=== PATIENT | female | born 1990 | race Caucasian/White ===

== ENCOUNTER 2019-11-18 13:27 | Observation (INO) | payer MEDICAID ==
[~2019-11-18] VITALS: Ht 157.5 cm; Wt 68.0 kg
== END 2019-11-18 16:50 | disposition home or self-care (01) ==
LOC: MLD 13:27
PROVIDERS: ADMIT Obstetrics & Gynecology; ATTEND Obstetrics & Gynecology
DX: O42.913 Preterm premature rupture of membranes, unspecified as to length of time between rupture and onset of labor, third trimester (principal); Z3A.36 36 weeks gestation of pregnancy
CPT/HCPCS: 76805; 81000; G0378; Q0092

== ENCOUNTER 2019-12-07 10:38 | Inpatient (IN) | payer MEDICAID ==
[~2019-12-07] VITALS: Ht 157.5 cm; Wt 80.3 kg
[2019-12-07] MEDS ORDERED: LACTATED RINGERS 1,000 ML IV SCH (11:12)
[2019-12-07] MEDS ORDERED: CARBOPROST 250 MCG/ML AMP IM PRN (11:15)
[2019-12-07] MEDS ORDERED: METHYLERGONOVINE 0.2 MG/ML AMP IM PRN (11:15)
[2019-12-07] MEDS ORDERED: NALBUPHINE 10 MG/ML AMP IVP PRN (11:15)
[2019-12-07] MEDS ORDERED: PROMETHAZINE 25 MG/ML VIAL IVP PRN (11:15)
[2019-12-07 11:36] VITALS: BP 109/65
[2019-12-07] MEDS ORDERED: INFLUENZA VACCINE QUAD 0.5 ML SYR IMVAC PRN (11:40)
[2019-12-07] MEDS ORDERED: MISOPROSTOL 25 MCG TAB VG SCH (12:00)
[2019-12-07 12:17] LABS: BASOPHILS % (AUTO) 0.3 % (0.0-2.0); EOSINOPHILS % (AUTO) 0.3 % (0.0-4.0); HEMATOCRIT 33.2 % (36-48); HEMOGLOBIN 10.7 g/dL (12.0-16.0); LYMPHOCYTES # (AUTO) 1.5 K/uL (2.5-16.5); LYMPHOCYTES % (AUTO) 13.8 % (20.5-51.1); MEAN CORPUSCULAR HEMOGLOBIN 27 pg (27-31); MEAN CORPUSCULAR HGB CONC 32 g/dL (33-37); MEAN CORPUSCULAR VOLUME 84.5 fL (80-94); MONOCYTES # (AUTO) 0.6 K/uL (0.8-1.0); MONOCYTES % (AUTO) 5.9 % (1.7-9.3); NEUTROPHILS # (AUTO) 8.5 K/uL (1.8-7.7); NEUTROPHILS % (AUTO) 79.7 % (42.2-75.2); PLATELET COUNT (AUTO) 157 K/uL (140-450); RED BLOOD CELL COUNT(AUTO) 3.92 MIL/uL (4.20-5.40); RED CELL DISTRIBUTION WIDTH 15.2 % (11.6-13.7); WHITE BLOOD COUNT (AUTO) 10.6 K/uL (4.8-10.8)
[2019-12-07 12:56] LABS: APPEARANCE,URINE CLEAR (CLEAR); BILIRUBIN,URINE NEGATIVE (NEGATIVE); BLOOD, URINE NEGATIVE (NEGATIVE); COLOR,URINE YELLOW (YELLOW); LEUKOCYTE ESTERASE ,URINE TRACE (NEGATIVE); NITRITE, URINE NEGATIVE (NEGATIVE); UGLUCOSE NEGATIVE (NEGATIVE)
[2019-12-07 13:03] LABS: RBC,URINE 0-5 /HPF (0-5); WBC,URINE 0-5 /HPF (0-5)
[2019-12-07] MEDS ORDERED: OXYTOCIN 20 UNITS in LACTATED RINGERS 1,000 ML IV SCH (19:45)
[2019-12-08] MEDS ORDERED: OXYTOCIN 20 UNITS/LR PREMIX 1,000 ML IV ONE (00:37)
[2019-12-08] MEDS ORDERED: BENZOCAINE/MENTHOL 20%-0.5% 60 GM CAN TP PRN (01:00)
[2019-12-08] MEDS ORDERED: MEASLES, MUMPS, AND RUBELLA 1 VIAL SQVAC PRN (01:00)
[2019-12-08] MEDS ORDERED: METHYLERGONOVINE 0.2 MG/ML AMP IM PRN (01:00)
[2019-12-08] MEDS ORDERED: OXYTOCIN 10 UNITS/ML VIAL IM PRN (01:00)
[2019-12-08] MEDS ORDERED: IBUPROFEN 800 MG TAB PO PRN (01:00)
[2019-12-08] MEDS ORDERED: METHYLERGONOVINE 0.2 MG TAB PO PRN (01:00)
[2019-12-08] MEDS ORDERED: BISACODYL 5 MG TABEC PO PRN (01:00)
[2019-12-08] MEDS ORDERED: LIDOCAINE MPF 1% 10 MG/ML VIAL INJ ONE (01:35)
--- NOTE | 2019-12-08 08:34 | NUR ---
PATIENT HAS BEEN SCREENED AND CATEGORIZED LOW NUTRITION RISK. PATIENT WILL BE SEEN WITHIN 7 DAYS OF ADMISSION. 12/13/[address]
[2019-12-09 16:09] LABS: HEMATOCRIT 30.6 % (36-48); HEMOGLOBIN 9.6 g/dL (12.0-16.0)
== END 2019-12-09 17:15 | disposition home or self-care (01) | DRG 560 ==
LOC: MLD 10:38 → MFCC 12-08 03:52
PROVIDERS: ADMIT Obstetrics & Gynecology; ATTEND Obstetrics & Gynecology
PROC: 10E0XZZ Delivery of Products of Conception, External Approach (ICD-10-PCS; principal; 2019-12-07)
PROC: 0HQ9XZZ Repair Perineum Skin, External Approach (ICD-10-PCS; 2019-12-07)
PROC: 10907ZC Drainage of Amniotic Fluid, Therapeutic from Products of Conception, Via Natural or Artificial Opening (ICD-10-PCS; 2019-12-07)
PROC: 3E033VJ Introduction of Other Hormone into Peripheral Vein, Percutaneous Approach (ICD-10-PCS; 2019-12-07)
DX: O70.0 First degree perineal laceration during delivery (principal); Z37.0 Single live birth; Z3A.40 40 weeks gestation of pregnancy
CPT/HCPCS: 36415; 59200; 59409; 76815; 81001; 85018; 85025; 86592; 86886; 86900; 86901; J2210; J2590; J7120; Q0092

== ENCOUNTER 2020-11-14 03:47 | Emergency (ER) | payer MEDICAID ==
[~2020-11-14] VITALS: Ht 157.5 cm; Wt 49.9 kg
[2020-11-14 03:58] VITALS: BP 125/78
--- NOTE | 2020-11-14 04:09 | NUR ---
A1 30 Y/O FEMALE PRESENTED TO ED C/O VAGINAL DISCHARGE X 1 HR. PT IS APPROXIMATELY 12 WEEKS , LMP APPROX 2019. PT DENIES ABDOMINAL PAIN AND VAGINAL BLEEDING AT THIS TIME. PT DENIES DYSURIA. PT ABD NONTENDER UPON PALPATION. A/O X 4. RR EVEN AND UNLABORED. PT RESTING IN BED , LOCKED AND IN LOWEST POSITION, HOB ELEVATED, SIDE RAIL X1. VSS. PMH: DENIES NKA
--- NOTE | 2020-11-14 04:21 | NUR ---
PT PROVIDED W/ URINE CUP FOR ENCOURAGEMENT OF URINE SAMPLE.
--- NOTE | 2020-11-14 04:23 | NUR ---
PT PROVIDED W/ GOWN AND BLANKET AT THIS TIME.
--- NOTE | 2020-11-14 04:30 | NUR ---
PT AMBULATED TO RESTROOM W/ STEADY GAIT.
--- NOTE | 2020-11-14 04:58 | NUR ---
BLOOD LABS COLLECTED AND WALKED OVER TO LAB
[2020-11-14 05:08] LABS: BASOPHILS % (AUTO) 0.3 % (0.0-2.0); EOSINOPHILS # (AUTO) 0.1 K/uL (0-0.4); EOSINOPHILS % (AUTO) 1.6 % (0.0-4.0); HEMATOCRIT 34.5 % (36-48); HEMOGLOBIN 11.7 g/dL (12.0-16.0); LYMPHOCYTES # (AUTO) 1.5 K/uL (2.5-16.5); LYMPHOCYTES % (AUTO) 19.1 % (20.5-51.1); MEAN CORPUSCULAR HEMOGLOBIN 30 pg (27-31); MEAN CORPUSCULAR HGB CONC 34 g/dL (33-37); MEAN CORPUSCULAR VOLUME 88.5 fL (80-94); MONOCYTES # (AUTO) 0.4 K/uL (0.8-1.0); MONOCYTES % (AUTO) 5.1 % (1.7-9.3); NEUTROPHILS # (AUTO) 5.9 K/uL (1.8-7.7); NEUTROPHILS % (AUTO) 73.9 % (42.2-75.2); PLATELET COUNT (AUTO) 205 K/uL (140-450); RED BLOOD CELL COUNT(AUTO) 3.89 MIL/uL (4.20-5.40); RED CELL DISTRIBUTION WIDTH 13.4 % (11.6-13.7); WHITE BLOOD COUNT (AUTO) 7.9 K/uL (4.8-10.8)
[2020-11-14 05:11] LABS: APPEARANCE,URINE HAZY (CLEAR); BILIRUBIN,URINE NEGATIVE (NEGATIVE); BLOOD, URINE 1+ (NEGATIVE); COLOR,URINE DARK YELLOW (YELLOW); LEUKOCYTE ESTERASE ,URINE TRACE (NEGATIVE); NITRITE, URINE NEGATIVE (NEGATIVE); UGLUCOSE NEGATIVE (NEGATIVE)
--- NOTE | 2020-11-14 05:15 | NUR ---
URINE SPECIMEN COLLECTED AND WALKED OVER TO LAB
--- NOTE | 2020-11-14 05:20 | NUR ---
ULTRASOUND AT BEDSIDE
[2020-11-14 05:31] LABS: ALBUMIN 2.9 g/dL (3.4-5.0); ANION GAP 13.8 (8-16); CARBON DIOXIDE 23.7 mmol/L (21-32); CREATININE 0.6 mg/dL (0.6-1.3); POTASSIUM 3.5 mmol/L (3.5-5.1); TOTAL BILIRUBIN 0.4 mg/dL (0.0-1.0)
[2020-11-14] MEDS ORDERED: cephALEXin 500 MG CAP PO ONE (05:50)
[2020-11-14 06:52] VITALS: BP 125/78
== END 2020-11-14 06:52 | disposition home or self-care (01) ==
LOC: MED 03:47
DX: O23.41 Unspecified infection of urinary tract in pregnancy, first trimester (principal); O26.891 Other specified pregnancy related conditions, first trimester; N89.8 Other specified noninflammatory disorders of vagina; Z3A.12 12 weeks gestation of pregnancy
CPT/HCPCS: 36415; 76801; 80053; 81001; 81025; 84702; 85025; 86900; 86901; 87086; 99284

== ENCOUNTER 2022-01-02 07:26 | Emergency (ER) | payer OTHER, SELFPAY ==
[~2022-01-02] VITALS: Ht 158.8 cm; Wt 73.9 kg
[2022-01-02 07:38] VITALS: BP 116/67
--- NOTE | 2022-01-02 07:45 | NUR ---
PATIENT AMB TO BED 11
[2022-01-02] MEDS ORDERED: NAPR-1704 PO (08:20)
--- NOTE | 2022-01-02 08:43 | NUR ---
PT C/O LOWER BACK PAIN, VAGINAL BLEEDING SINCE THIS AM.
== END 2022-01-02 09:29 | disposition home or self-care (01) ==
LOC: MED 07:26
DX: N92.1 Excessive and frequent menstruation with irregular cycle (principal)
CPT/HCPCS: 81002; 81025; 99282

== ENCOUNTER 2022-08-09 08:27 | Observation (INO) | payer OTHER ==
[~2022-08-09] VITALS: Ht 165.1 cm; Wt 80.7 kg
[~2022-08-09 08:27] MED LIST: NAPR-1704 PO
[2022-08-09 08:30] VITALS: BP 119/56
== END 2022-08-09 13:30 | disposition home or self-care (01) ==
LOC: MLD 08:27
PROVIDERS: ADMIT Obstetrics & Gynecology; ATTEND Obstetrics & Gynecology
DX: O36.8120 Decreased fetal movements, second trimester, not applicable or unspecified (principal); Z3A.22 22 weeks gestation of pregnancy
CPT/HCPCS: 59025; 76819; 81000; G0378; G0379; Q0092

== ENCOUNTER 2022-11-04 06:02 | Observation (INO) | payer OTHER ==
[~2022-11-04] VITALS: Ht 165.1 cm; Wt 76.2 kg
[2022-11-04] MEDS ORDERED: TERBUTALINE 1 MG/ML VIAL SUBQ SCH (06:45)
[2022-11-04] MEDS ORDERED: LACTATED RINGERS 500 ML IV SCH (06:45)
[2022-11-04] MEDS ORDERED: BETAMETH ACET/BETAMETH NA PH 30 MG/5 ML VIAL IM SCH (06:45)
[2022-11-04] MEDS ORDERED: LACTATED RINGERS 1,000 ML IV SCH (06:45)
[2022-11-04 06:53] VITALS: BP 102/53
[2022-11-04 07:32] LABS: BASOPHILS % (AUTO) 0.2 % (0.0-2.0); EOSINOPHILS # (AUTO) 0.1 K/uL (0-0.4); EOSINOPHILS % (AUTO) 0.7 % (0.0-4.0); HEMATOCRIT 30.3 % (36-48); HEMOGLOBIN 9.8 g/dL (12.0-16.0); LYMPHOCYTES # (AUTO) 1.5 K/uL (2.5-16.5); LYMPHOCYTES % (AUTO) 13.1 % (20.5-51.1); MEAN CORPUSCULAR HEMOGLOBIN 28 pg (27-31); MEAN CORPUSCULAR HGB CONC 32 g/dL (33-37); MEAN CORPUSCULAR VOLUME 86.5 fL (80-94); MONOCYTES % (AUTO) 8.5 % (1.7-9.3); NEUTROPHILS # (AUTO) 8.9 K/uL (1.8-7.7); NEUTROPHILS % (AUTO) 77.5 % (42.2-75.2); PLATELET COUNT (AUTO) 156 K/uL (140-450); RED CELL DISTRIBUTION WIDTH 15.5 % (11.6-13.7); WHITE BLOOD COUNT (AUTO) 11.5 K/uL (4.8-10.8)
[2022-11-04 08:34] LABS: APPEARANCE,URINE CLEAR (CLEAR); BILIRUBIN,URINE NEGATIVE (NEGATIVE); BLOOD, URINE NEGATIVE (NEGATIVE); COLOR,URINE YELLOW (YELLOW); LEUKOCYTE ESTERASE ,URINE NEGATIVE (NEGATIVE); NITRITE, URINE NEGATIVE (NEGATIVE); PH,URINE 6.5 (5.0-9.0); UGLUCOSE NEGATIVE (NEGATIVE)
--- NOTE | 2022-11-04 10:10 | NUR ---
PATIENT HAS BEEN SCREENED AND CATEGORIZED LOW NUTRITION RISK. PATIENT WILL BE SEEN WITHIN 7 DAYS OF ADMISSION. 11/04/22-11/11/[address]
== END 2022-11-04 15:45 | disposition home or self-care (01) ==
LOC: MLD 06:02
PROVIDERS: ADMIT Obstetrics & Gynecology; ATTEND Obstetrics & Gynecology
DX: O60.03 Preterm labor without delivery, third trimester (principal); Z20.822 Contact with and (suspected) exposure to COVID-19; Z3A.34 34 weeks gestation of pregnancy
CPT/HCPCS: 36415; 59025; 76817; 81003; 82731; 85025; 87426; 87635; 96372; G0378; J0702; J3105; Q0092

== ENCOUNTER 2022-11-05 10:09 | Observation (INO) | payer OTHER ==
[~2022-11-05] VITALS: Ht 165.1 cm; Wt 85.3 kg
[2022-11-05] MEDS ORDERED: BETAMETH ACET/BETAMETH NA PH 30 MG/5 ML VIAL IM SCH (10:21)
[2022-11-05 10:51] VITALS: BP 111/58
== END 2022-11-05 11:32 | disposition home or self-care (01) ==
LOC: MLD 10:09
PROVIDERS: ADMIT Obstetrics & Gynecology; ATTEND Obstetrics & Gynecology
DX: O26.893 Other specified pregnancy related conditions, third trimester (principal); R10.9 Unspecified abdominal pain; O99.891 Other specified diseases and conditions complicating pregnancy; M54.9 Dorsalgia, unspecified; Z3A.35 35 weeks gestation of pregnancy
CPT/HCPCS: 59025; G0378; J0702

== ENCOUNTER 2023-11-10 14:59 | Emergency (ER) | payer OTHER ==
[~2023-11-10] VITALS: Ht 165.1 cm; Wt 70.9 kg
[2023-11-10 15:13] VITALS: BP 97/71; PULSE 111; RESP 20; TEMP 99.3; O2SAT 96
[2023-11-10] MEDS ORDERED: KETOROLAC 30 MG/ML VIAL IM ONE (15:55)
[2023-11-10] MEDS ORDERED: [UNRECOGNIZED DRUG - CODE] PO (15:56)
== END 2023-11-10 16:26 | disposition home or self-care (01) ==
LOC: MED 14:59
DX: N64.4 Mastodynia (principal); R51.9 Headache, unspecified; Z79.1 Long term (current) use of non-steroidal anti-inflammatories (NSAID); Z79.2 Long term (current) use of antibiotics
CPT/HCPCS: 81025; 96372; 99283; J1885